=== PATIENT | female | born 1995 | race American Indian/Alaskan Native ===

== ENCOUNTER 2018-09-18 01:17 | Emergency (ER) | payer MEDICAID ==
[2018-09-18] MEDS ORDERED: NORCO 10/325 PO ONE (02:13)
[2018-09-18] MEDS ORDERED: NORCO 10/325 ONE (02:13)
--- NOTE | 2018-09-18 02:28 | XRay Report ---
PROCEDURE: RIGHT FOOT, 2 VIEWS TECHNIQUE: RIGHT foot radiographs, AP and lateral views. CPT 08045 HISTORY: Pain COMPARISONS: None . FINDINGS: Fracture (s) and/or Dislocation(s): None . Alignment: Normal . Joint space(s): Normal . Soft tissues: Normal . Bone mineralization: Normal . Foreign bodies: None . Calcaneal spurring: None . IMPRESSION: Normal Examination . This document is electronically signed by Hernan Whittington MD., September 18 2018 02:25:54 AM ET
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
[2018-09-18] MEDS ORDERED: TORADOL IM ONE (05:18)
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
[2018-09-18 06:22] VITALS: BP 132/80
== END 2018-09-18 06:26 | disposition home or self-care (01) ==
LOC: ED 01:17
DX: S80.11XA Contusion of right lower leg, initial encounter (principal); F17.200 Nicotine dependence, unspecified, uncomplicated; Z88.0 Allergy status to penicillin; Z88.4 Allergy status to anesthetic agent; Z79.899 Other long term (current) drug therapy; V09.9XXA Pedestrian injured in unspecified transport accident, initial encounter; Y93.89 Activity, other specified; Y92.410 Unspecified street and highway as the place of occurrence of the external cause; Y99.8 Other external cause status
CPT/HCPCS: 29515; 73590; 73600; 73620; 96372; 99283; J1885